=== PATIENT | male | born 1970 | race African-American/Black ===

== ENCOUNTER 2018-07-02 15:32 | Emergency (ER) | payer OTHER ==
[~2018-07-02] VITALS: Ht 182.9 cm; Wt 129.3 kg
[2018-07-02] MEDS ORDERED: NORVASC2.5 MG PO (15:48)
[2018-07-02] MEDS ORDERED: COZAAR 25 MG TA25 M1 PO (15:48)
[2018-07-02 16:46] VITALS: BP 150/96
== END 2018-07-02 16:47 | disposition home or self-care (01) ==
LOC: ER 15:32
DX: M54.5 Low back pain (principal); M25.551 Pain in right hip; M25.552 Pain in left hip; Z88.8 Allergy status to other drugs, medicaments and biological substances; W18.39XA Other fall on same level, initial encounter; Y93.89 Activity, other specified; Y92.89 Other specified places as the place of occurrence of the external cause; Y99.8 Other external cause status

== ENCOUNTER 2018-07-08 20:27 | Emergency (ER) | payer OTHER ==
[~2018-07-08] VITALS: Ht 182.9 cm; Wt 129.3 kg
[~2018-07-08 20:27] MED LIST: COZAAR 25 MG TA25 M1 PO; NORVASC2.5 MG PO
[2018-07-08] MEDS ORDERED: TRAMADOL 50 MG50 MG PO (22:09)
[2018-07-08] MEDS ORDERED: NORFLEX100 MG PO (22:09)
[2018-07-08] MEDS ORDERED: NAPROSYN500 MG PO (22:09)
[2018-07-08 22:29] VITALS: BP 163/102
== END 2018-07-08 22:29 | disposition home or self-care (01) ==
LOC: ER 20:27
DX: M54.41 Lumbago with sciatica, right side (principal); Z88.8 Allergy status to other drugs, medicaments and biological substances; W18.39XA Other fall on same level, initial encounter; Y93.89 Activity, other specified; Y92.89 Other specified places as the place of occurrence of the external cause; Y99.8 Other external cause status

== ENCOUNTER → 2019-06-26 | Outpatient (CLI) | payer OTHER ==
[~2019-06-26] MED LIST changes: +NAPROSYN500 MG PO; +NORFLEX100 MG PO; +TRAMADOL 50 MG50 MG PO
== END ==
LOC: RAD 10:51
DX: L40.0 Psoriasis vulgaris (principal); Z79.899 Other long term (current) drug therapy

== ENCOUNTER → 2019-09-13 | Outpatient (CLI) | payer OTHER | LOC: MRI 13:42 | PROVIDERS: ATTEND Neurological Surgery | DX: M51.26 Other intervertebral disc displacement, lumbar region (principal); M48.061 Spinal stenosis, lumbar region without neurogenic claudication ==